=== PATIENT | male | born 2000 | race Two or more races ===

== ENCOUNTER 2022-07-08 19:41 | Emergency (ER) | payer MEDICAID ==
[~2022-07-08] VITALS: Ht 162.6 cm; Wt 70.5 kg
[2022-07-08 20:31] LABS: COVID AG,FIA SOURCE NASAL SWAB
[2022-07-08 20:54] LABS: INFLUENZA TYPE A NEGATIVE FOR TYPE A (NEGATIVE); INFLUENZA TYPE B NEGATIVE FOR TYPE B (NEGATIVE)
[2022-07-08 21:30] VITALS: BP 124/68
== END 2022-07-08 22:07 | disposition home or self-care (01) ==
LOC: EMS 19:43
DX: U07.1 COVID-19 (principal)
CPT/HCPCS: 87804; 99283

== ENCOUNTER 2023-08-13 14:53 | Emergency (ER) | payer SELFPAY ==
[~2023-08-13] VITALS: Ht 170.2 cm; Wt 66.0 kg
[2023-08-13 15:13] VITALS: TEMP 99.7
[2023-08-13 20:13] LABS: COVID AG,FIA SOURCE NASAL SWAB
[2023-08-13 20:39] LABS: INFLUENZA TYPE A NEGATIVE FOR TYPE A (NEGATIVE); INFLUENZA TYPE B NEGATIVE FOR TYPE B (NEGATIVE)
[2023-08-13] MEDS ORDERED: BENZ-227 PO (21:02)
[2023-08-13] MEDS ORDERED: NIRM1TAB10 PO (21:47)
[2023-08-13 22:10] VITALS: BP 118/64; PULSE 83; RESP 15
[2023-08-13 22:16] LABS: SARS-COV2 (COVID) ANTIGEN,FIA Positive (Negative)
== END 2023-08-13 22:12 | disposition home or self-care (01) ==
LOC: EMS 14:56
DX: U07.1 COVID-19 (principal); F17.210 Nicotine dependence, cigarettes, uncomplicated
CPT/HCPCS: 87430; 87804; 99283